=== PATIENT | female | born 1965 | race African-American/Black ===

== ENCOUNTER 2017-02-02 19:34 | Emergency (ER) | payer MEDICAID ==
[~2017-02-02] VITALS: Ht 157.5 cm; Wt 122.5 kg
[~2017-02-02 19:34] MED LIST: MEDROL8 MG PO; PROAIR HFA8.5 GM INH; UNOBMED
[2017-02-02] MEDS ORDERED: Enalapril 5mg tab ORAL ONE (20:15)
[2017-02-02] MEDS ORDERED: TYLENOL EXTRA500 MG ORAL (20:45)
[2017-02-02 21:00] VITALS: BP 192/98
--- NOTE | 2017-02-02 21:06 | Emergency Room Report ---
History of Present Illness General Chief Complaint: Hypertension Source: Patient Present Illness HPI The patient is a 51-year-old female with a history of hypertension presenting for hypertension and headache. She states that she has not been taking her blood pressure medications as prescribed as she has been trying to exercise more. She takes hydrochlorothiazide. She noticed a headache which began 4 hours prior to arrival and increased gradually. It is now described as a 10 out of 10 dull ache primarily to the front of the head. Pain worse with fast movements. Pain does not radiate. She denies any other symptoms including N, V , F, chills, CP, SOB, weakness, blurred vision, dizziness Allergies: Coded Allergies: No Known Allergies (Unverified , 04/05/16) Patient History Past Medical History: see triage record Pertinent Family History: none Last Menstrual Period: Menopause Now: No Reviewed Nursing Documentation: PMH: Agreed, PSxH: Agreed Nursing Documentation-PMH Past Medical History: No History, Except For Hx Hypertension: Yes Review of Systems All Other Systems: negative except mentioned in HPI Physical Exam Vital Signs Date Time Temp Pulse Resp B/P Pulse Ox O2 Delivery O2 Flow Rate FiO2 02/02/17 19:40 98.8 78 16 162/101 100 Room Air Sp02 EP Interpretation: reviewed, normal General Appearance: no apparent distress, alert, GCS 15, non-toxic Head: normocephalic, atraumatic Eyes: bilateral eye PERRL, bilateral eye normal inspection ENT: hearing grossly normal, normal pharynx, no angioedema, normal voice Neck: full range of motion, supple/symm/no masses Respiratory: chest non-tender, lungs clear, normal breath sounds, speaking full sentences Cardiovascular #1: regular rate, rhythm, no edema Musculoskeletal: back normal, gait/station normal, normal range of motion, non- tender Neurologic: alert, oriented x3, responsive, motor strength/tone normal, sensory intact, speech normal Psychiatric: judgement/insight normal, memory normal, mood/affect normal, no suicidal/homicidal ideation Skin: normal color, no rash, warm/dry, well hydrated Lymphatic: no adenopathy Medical Decision Making PA Attestation Dr. Joseph is my supervising physician. Patient management was discussed with my supervising physician Diagnostic Impression: Primary Impression: Headache Qualified Codes: R51 - Headache Additional Impression: Hypertension Qualified Codes: I10 - Essential (primary) hypertension ER Course The patient is a 51-year-old female with a history of hypertension presenting for hypertension and headache Differential diagnoses include but not limited to Migraine, tension headache, HTN, HTN urgency, among others PE: pt is hypertensive. Otherwise vitals unremarkable NAD HEENT unremarkable. Lungs CTA bilat. RRR. No MRG The patient is given pain medication and antihypertensive medication and is feeling better. To be discharged and will keep a blood pressure diarrhea at home. She is informed of the importance of taking her blood pressure medications and will continue to take them daily. She will follow up with PMD ER precautions given Last Vital Signs Date Time Temp Pulse Resp B/P Pulse Ox O2 Delivery O2 Flow Rate FiO2 02/02/17 20:56 162/101 02/02/17 19:58 78 16 Room Air 02/02/17 19:40 98.8 100 Status: improved Disposition: HOME, SELF-CARE Condition: Improved Scripts Acetaminophen* (TYLENOL EXTRA STRENGTH*) 500 Mg Tablet 500 MG ORAL Q8H Y for Prn Headache/Temp > 101, #30 TAB 0 Refills Prov: GISSEL BRIGGS 02/02/17 Patient Instructions: General Headache Without Cause, Hypertension Additional Instructions: I discussed my findings with the patient. All questions and concerns have been answered. Treatment and medication compliance have been addressed. I advised the patient that they need to follow up with PMD in 3-5 days. Return to ED if symptoms worsen, new symptoms arise, or if needed for any reason. Patient verbalized understanding of discharge instructions. GISSEL BRIGGS Feb 02, 2017 21:06
== END 2017-02-02 21:00 | disposition home or self-care (01) ==
LOC: EMR 20:00
DX: R51 Headache (principal); I10 Essential (primary) hypertension
CPT/HCPCS: 99283

== ENCOUNTER 2017-10-10 16:40 | Emergency (ER) | payer MEDICAID ==
[~2017-10-10] VITALS: Ht 157.5 cm; Wt 126.6 kg
[~2017-10-10 16:40] MED LIST changes: +TYLENOL EXTRA500 MG ORAL
[2017-10-10 17:45] VITALS: BP 113/45
[2017-10-10] MEDS ORDERED: Meclizine 25mg tab ORAL PRN (17:45)
[2017-10-10 18:01] LABS: BASOPHILS % (AUTO) 0.4 % (0.0-2.0); EOSINOPHILS % (AUTO) 0.1 % (0.0-3.0); HEMATOCRIT 34.3 % (37.0-47.0); HEMOGLOBIN 11.3 G/DL (12.0-16.0); LYMPHOCYTES % (AUTO) 32.2 % (20.0-45.0); MEAN CORPUSCULAR VOLUME 86 FL (80-99); MONOCYTES % (AUTO) 8.8 % (1.0-10.0); NEUTROPHILS % (AUTO) 58.5 % (45.0-75.0); PLATELET COUNT 231 K/UL (150-450); RED BLOOD COUNT 3.99 M/UL (4.20-5.40); RED CELL DISTRIBUTION WIDTH 13.1 % (11.6-14.8); WHITE BLOOD COUNT 4.8 K/UL (4.8-10.8)
[2017-10-10 18:19] LABS: ANION GAP 12 mmol/L (5-15); BLOOD UREA NITROGEN 30 mg/dL (7-18); CALCIUM 8.8 MG/DL (8.5-10.1); CARBON DIOXIDE 24 MMOL/L (21-32); CHLORIDE 101 MMOL/L (98-107); CREATININE 2.1 MG/DL (0.55-1.30); POTASSIUM 3.6 MMOL/L (3.5-5.1); SODIUM 137 MMOL/L (136-145)
[2017-10-10 18:35] LABS: ALANINE AMINOTRANSFERASE 28 U/L (12-78); ALBUMIN 3.8 G/DL (3.4-5.0); ALBUMIN/GLOBULIN RATIO 0.8 (1.0-2.7); ALKALINE PHOSPHATASE 65 U/L (46-116); ASPARTATE AMINO TRANSFERASE 33 U/L (15-37); BILIRUBIN,TOTAL 0.3 MG/DL (0.2-1.0); CKMB 0.7 NG/ML (0.0-3.6); CREATINE KINASE 326 U/L (26-308)
[2017-10-10] MEDS ORDERED: VENTOLIN HFA18 GM INH (19:13)
[2017-10-10] MEDS ORDERED: ACETAMINOPHEN-1 EAC1 ORAL (19:13)
--- NOTE | 2017-10-10 19:21 | Emergency Room Report ---
History of Present Illness General Chief Complaint: Nausea, Vomiting, and Diarrhea Source: Patient Present Illness HPI 51-year-old female walks in with consolation of URI symptoms, including rhinorrhea, sore throat, dry cough, pleuritic chest pain for 2-3 days. Social associated with dizziness that started after URI symptoms. Denies that dizziness is worse with head movement, changing position. Dizziness not associated with headache, tinnitus. No recent ASA use. No OTC meds used. History of HTN Allergies: Coded Allergies: No Known Allergies (Unverified , 04/05/16) Patient History Past Medical History: HTN Past Surgical History: none Pertinent Family History: none Social History: Denies: smoking, alcohol use, drug use Now: No Immunizations: UTD Reviewed Nursing Documentation: PMH: Agreed, PSxH: Agreed Nursing Documentation-PMH Hx Cardiac Problems: Yes - CHF Hx Hypertension: Yes Review of Systems All Other Systems: negative except mentioned in HPI Physical Exam Vital Signs Date Time Temp Pulse Resp B/P (MAP) Pulse Ox O2 Delivery O2 Flow Rate FiO2 10/10/17 16:42 98.6 81 20 117/81 99 Room Air Sp02 EP Interpretation: reviewed, normal General Appearance: normal inspection, well appearing, no apparent distress, alert, GCS 15, non-toxic, obese Head: normocephalic, atraumatic Eyes: bilateral eye PERRL, bilateral eye EOMI ENT: normal ENT inspection, hearing grossly normal, normal pharynx, no angioedema, normal voice, TMs + canals normal, uvula midline, moist mucus membranes Neck: normal inspection, full range of motion, supple, thyroid normal, no meningismus, no bony tend Respiratory: normal inspection, lungs clear, normal breath sounds, no rhonchi, no respiratory distress, no retraction, no accessory muscle use, no wheezing, speaking full sentences Cardiovascular #1: regular rate, rhythm, no edema, no JVD, normal capillary refill Gastrointestinal: normal inspection, normal bowel sounds, non tender, soft, no mass, no peritonitis, non-distended, no guarding, no hernia, no pulsatile mass Genitourinary: no CVA tenderness Musculoskeletal: normal inspection, back normal, normal range of motion, no calf tenderness, pelvis stable, Opal's Sign negative Neurologic: normal inspection, alert, oriented x3, responsive, follow up clerk III-XII nml as tested, motor strength/tone normal, cerebellar normal, normal gait, speech normal Psychiatric: normal inspection, judgement/insight normal, mood/affect normal, no suicidal/homicidal ideation, no delusions Skin: normal inspection, normal color, no rash Lymphatic: normal inspection, no adenopathy Medical Decision Making Diagnostic Impression: Primary Impression: URI (upper respiratory infection) Qualified Codes: J06.9 - Acute upper respiratory infection, unspecified Additional Impression: BPPV (benign paroxysmal positional vertigo) Qualified Codes: H81.10 - Benign paroxysmal vertigo, unspecified ear ER Course VSS, Afebrile Vertigo likely d/t URI symptoms No sign of bacterial infection on exam - no fever, no leukocytosis Vertigo resolved with PO meclizine and IVF Patient not ambulating with steady gait On re-exam, patient sitting upright in stretcher, talking on cell phone No other metabolic abnormalities Unlikely ACS as cause for symptoms given normal trop, no ischemia or arrythmia on ECG ER course: Patient has remained stable during ED stay. Disposition: Patient is to be discharged to home. Prescriptions given are ventolin, meclziine, T#3 Patient is instructed to follow up with their primary care doctor within 5 days. Strict return precautions discussed with patient such as fever, chills, worsening/severe pain, nausea, vomiting, which may indicate severe illness. Patient verbalizes understanding and agrees with plan. Please note that this Emergency Department Report was dictated using [employer] practical vocational nurse technology software, occasionally this can lead to erroneous entry secondary to interpretation by the dictation equipment EKG Diagnostic Results Rate: normal Rhythm: NSR ST Segments: no acute changes ASA given to the pt in ED: No Rhythm Strip Diag. Results EP Interpretation: yes Rate: 70 Rhythm: NSR, no PVC's, no ectopy Last Vital Signs Date Time Temp Pulse Resp B/P (MAP) Pulse Ox O2 Delivery O2 Flow Rate FiO2 10/10/17 17:45 98.3 72 16 113/45 96 Room Air Status: improved Disposition: HOME, SELF-CARE Condition: Improved Scripts Acetaminophen With Codeine (T#3) (TYLENOL #3 TAB*) Y Tab 1 TAB ORAL QHS Y for For Cough, #20 TAB Prov: HUGH FLAHERTY M.D. 10/10/17 Albuterol Sulfate (VENTOLIN HFA) 18 Gm Hfa.aer.ad 1 PUFF INH EVERY 6 HOURS for For Cough, #18 GM 0 Refills Prov: HUGH FLAHERTY M.D. 10/10/17 Patient Instructions: Upper Respiratory Infection, Adult, Begp-en-Svgw, Benign Positional Vertigo Additional Instructions: use albuterol inhalr or Tylenol with codeine as needed at night for cough Please followup with your doctor in one to 2 days HUGH FLAHERTY M.D. Oct 10, 2017 19:21
[2017-10-10 19:26] VITALS: BP 110/59
[2017-10-10 20:58] VITALS: BP 113/69
--- NOTE | 2017-10-11 10:53 | Diagnostic Imaging Report ---
Indication: Shortness of breath Technique: XRAY Chest 1v Comparison: 04/05/2016 Findings: Low lung volumes artifactually exaggerate heart size and vascular markings. Heart size and mediastinal contours are likely stable allowing for differences in inspiration. There is no definite focal airspace consolidation, pleural effusion or pneumothorax. No acute osseous abnormality seen. Impression: Limited exam with low lung volumes. No definite radiographic evidence of acute cardiopulmonary disease. Repeat exam with improved inspiratory effort a be obtained as clinically indicated for better evaluation.
--- NOTE | 2017-10-11 17:54 | Cardiology Report ---
APPROVED REPORT EKG Measurement Heart [id number] Normal sinus rhythm Nonspecific T wave abnormality Abnormal ECG
== END 2017-10-10 21:02 | disposition home or self-care (01) ==
LOC: EMR 18:05
DX: J06.9 Acute upper respiratory infection, unspecified (principal); H81.10 Benign paroxysmal vertigo, unspecified ear; I10 Essential (primary) hypertension
CPT/HCPCS: 36415; 71045; 80053; 80307; 82550; 82553; 84484; 85025; 93005; 96361; 99284; J2405